=== PATIENT | male | born 1955 ===

== ENCOUNTER 2021-02-14 10:30 | Emergency (ER) | payer SELFPAY ==
[~2021-02-14] VITALS: Ht 177.8 cm; Wt 95.5 kg
[2021-02-14 10:41] VITALS: BP 123/84; Ht 177.8 cm; Wt 95.5 kg
[2021-02-14] MEDS ORDERED: POTASSIUM (10:42)
[2021-02-14] MEDS ORDERED: 2 INHALERS (10:42)
[2021-02-14] MEDS ORDERED: BLOOD PRESSURE MED (10:42)
[2021-02-14] MEDS ORDERED: THYROID MED (10:42)
[2021-02-14] MEDS ORDERED: ZPAK PO (11:36)
== END 2021-02-14 11:44 | disposition home or self-care (01) ==
LOC: D.ER 10:30
DX: J44.1 Chronic obstructive pulmonary disease with (acute) exacerbation (principal); R06.02 Shortness of breath